=== PATIENT | female | born 1985 | race Caucasian/White ===

== ENCOUNTER 2017-11-09 12:54 | Outpatient (CLI) | payer OTHER ==
[2017-11-09 13:26] LABS: BASOPHILS % (AUTO) 0.6 %; EOSINOPHILS # (AUTO) 0.1 10^3/uL (0.0-0.7); EOSINOPHILS % (AUTO) 1.2 %; LYMPHOCYTES # (AUTO) 2.1 10^3/uL (1.5-3.5); MEAN CORPUSCULAR HEMOGLOBIN 30.4 pg (27.0-31.0); MEAN CORPUSCULAR HGB CONC 35.1 g/dL (32.0-36.0); MEAN CORPUSCULAR VOLUME 86.6 fL (81.0-99.0); MEAN PLATELET VOLUME 7.4 fL (7.9-10.8); MONOCYTES # (AUTO) 0.7 10^3/uL (0.0-1.0); NEUTROPHILS # (AUTO) 4.8 10^3/uL (1.5-6.6); NEUTROPHILS % (AUTO) 62.2 %; PLT - PLATELET COUNT 209 10^3/uL (130-450); RED BLOOD COUNT 4.61 10^6/uL (4.20-5.40); RED CELL DISTRIBUTION WIDTH 12.7 % (12.0-15.0); WHITE BLOOD COUNT 7.7 x10^3/uL (4.8-10.8)
[2017-11-09 13:38] LABS: ALBUMIN 4.6 g/dL (3.2-5.5); ALBUMIN/GLOBULIN RATIO 1.3 (1.0-2.2); BILIRUBIN,TOTAL 1.1 mg/dL (0.2-1.0); CALCIUM 9.3 mg/dL (8.5-10.3); CREATININE 0.8 mg/dL (0.4-1.0); TOTAL PROTEIN 8.1 g/dL (6.7-8.2)
[2017-11-09 13:44] LABS: HB2 TOTAL 15.2 g/dL; HEMOGLOBIN A1C 0.43 g/dL; HEMOGLOBIN A1C % 4.7 % (4.6-6.2)
== END 2017-11-09 12:55 | disposition home or self-care (01) ==
LOC: LAB 12:54
PROVIDERS: ATTEND Registered Nurse
DX: Z31.49 Encounter for other procreative investigation and testing (principal)
CPT/HCPCS: 36415; 80053; 81599; 82627; 83036; 84144; 84146; 84402; 84403; 85025

== ENCOUNTER 2017-11-16 18:42 | Outpatient (CLI) | payer OTHER ==
--- NOTE | 2017-11-17 13:27 | Ultrasound Report ---
PELVIC ULTRASOUND: 11/16/2017 CLINICAL INDICATION: Encounter for other procreative investigation and testing. TECHNIQUE: Transabdominal pelvic ultrasound performed for global evaluation. Transvaginal pelvic ultrasound performed for detailed evaluation. Real-time scanning performed and static images obtained. FINDINGS: The uterus is anteverted, measuring 7.2 x 5.4 x 3.8 cm. The endometrium measures 4 mm. There is a 2.9 x 1.9 x 1.4 cm intramural leiomyoma anteriorly. The ovaries are unremarkable, with the right measuring 3.4 x 2.2 x 1.7 cm, and the left measuring 2.6 x 2.0 x 1.5 cm. No free fluid is present. IMPRESSION: ANTERIOR INTRAMURAL LEIOMYOMA. TD: 11/17/2017 13:26
== END 2017-11-16 18:43 | disposition home or self-care (01) ==
LOC: DI 18:42
PROVIDERS: ATTEND Registered Nurse
DX: Z31.49 Encounter for other procreative investigation and testing (principal); D25.1 Intramural leiomyoma of uterus
CPT/HCPCS: 76830; 76856

== ENCOUNTER 2017-12-11 11:49 | Outpatient (CLI) | payer OTHER ==
[2017-12-11 13:35] LABS: FOLLICLE STIMULATING HORMONE 6.16 mIU/mL
[2017-12-11 13:36] LABS: LUTEINIZING HORMONE 7.33 mIU/mL
== END 2017-12-11 11:50 | disposition home or self-care (01) ==
LOC: LAB 11:49
PROVIDERS: ATTEND Registered Nurse
DX: Z31.49 Encounter for other procreative investigation and testing (principal)
CPT/HCPCS: 36415; 82670; 83001; 83002